=== PATIENT | female | born 1970 | race Caucasian/White ===

== ENCOUNTER 2017-01-05 11:28 | Emergency (ER) | payer MEDICAID ==
[2017-01-05 11:41] VITALS: TEMP 97.9; O2SAT 96
--- NOTE | 2017-01-05 11:49 | EDPHY ---
H & P Stated Complaint: L Knee Injury HPI/ROS: CHIEF COMPLAINT: Left knee pain, fall HISTORY OF PRESENT ILLNESS: Patient was running last night when she tripped and fell. She landed on her left knee in a bent position. She said severe pain in the left knee since then. Radiates down the leg. No numbness or tingling. No position of comfort. Severe, 10/10 pain. Unable to move due to the pain. No laceration. No injury to the ipsilateral hip. No back, head or neck injury. PRIOR ORTHO INJURIES: Multiple ortho injuries in the past ESTABLISHED ORTHOPEDIST: None REVIEW OF SYSTEMS: Ten systems reviewed and are negative unless otherwise noted in the HPI EXAMINATION General Appearance: Alert, no distress. Wearing sunglasses in the room. Crying but consolable Cardiovascular: Pulses normal throughout. Symmetric DP and PT pulses at 2+ Brisk cap refill Neurological: A&O, sensory symmetric, strength symmetric Skin: Warm and dry, no rash. Superficial abrasion over the anterior tibial spine on the left leg. No laceration. No ecchymosis. Extremities: Tenderness out of proportion to examination of the left knee. There is mild edema about the knee. Range of motion not tested due to pain. Neurovascular intact distal to the knee injury. Range of motion of the left ankle is intact. Psychiatric: Mood and affect normal DIFFERENTIAL DIAGNOSES: Including but not limited to hematoma, sprain, strain, fracture, fracture dislocation MDM: 11:45 a.m. Acute left knee pain after fall injury last night. She is neurovascular intact distal to the knee. There is pain out of proportion to examination. 12:15 p.m. Acute left knee sprain. No evidence of fracture by my interpretation. She will be placed in an Darrell wrap. She brought her are crutches. She is neurovascularly intact. Discharged home in stable condition with routine instructions for sprain. Follow up with Orthopedics for definitive care. Return to ER for motor or sensory changes as discussed. 1:05 p.m. Notified by resource nurse that the patient is asking for prescription for Zofran. She says the pain is nauseated her. I provided a prescription for her to fill. ED Precautions: Worsening pain. Erythema, edema, cyanosis, pallor, paresthesia or anesthesia. SUPERVISION: This patient was independently evaluated without direct examination by the attending physician. Case was discussed with attending physician. Source: Patient, Family Exam Limitations: No limitations - Personal History LMP (Females 10-55): Over 28 Days Ago Current Tetanus Diphtheria and Acellular Pertussis (TDAP): Yes - Medical/Surgical History Hx Asthma: No Hx Chronic Respiratory Disease: No Hx Diabetes: No Hx Cardiac Disease: No Hx Renal Disease: No Hx Cirrhosis: No Hx Alcoholism: No Hx HIV/AIDS: No Hx Splenectomy or Spleen Trauma: No Other PMH: Anxiety, L Leg fracture - Social History Smoking Status: Current some day smoker Constitutional: Initial Vital Signs Temperature (C) 97.9 F 01/05/17 11:30 Heart Rate 105 H 01/05/17 11:30 Respiratory Rate 20 01/05/17 11:30 Blood Pressure 150/112 H 01/05/17 11:30 O2 Sat (%) 96 01/05/17 11:30 O2 Delivery Mode Room Air Allergies/Adverse Reactions: diphenhydramine [From Benadryl] Allergy (Verified 01/05/17 11:29) ibuprofen Allergy (Verified 01/05/17 11:29) Home Medications: Medication Instructions Recorded Acetaminophen/Codeine 300/30Mg 1 each PO Q6 PRN #10 tab 01/05/17 [Tylenol #3 (*)] Ondansetron Odt [Zofran Odt 4 mg 4 mg PO Q6 PRN #12 tab 01/05/17 (*)] Medical Decision Making - Diagnostics Imaging Results: Imaging Impressions Knee X-Ray 01/05/17 11:40 Impression: Negative for fracture. Departure - Departure Disposition: Home, Routine, Self-Care Clinical Impression: Left knee sprain Qualifiers: Encounter type: initial encounter Involved ligament of knee: unspecified ligament Qualified Code(s): S83.92XA - Sprain of unspecified site of left knee, initial encounter Contusion of knee and lower leg Qualifiers: Encounter type: initial encounter Laterality: left Qualified Code(s): S80.02XA - Contusion of left knee, initial encounter Condition: Good Instructions: Knee Sprain (ED), Leg Sprain (ED) Additional Instructions: Follow-up with Orthopedics for definitive care. Return to the ER for motor sensory changes as discussed Referrals: NONE *PRIMARY CARE P,. [Primary Care Provider] - As per Instructions Demian Burgos MD [Medical Doctor] - As per Instructions Prescriptions: Acetaminophen/Codeine 300/30Mg [Tylenol #3 (*)] 1 each PO Q6 PRN #10 tab PRN Reason: Pain, Mild Ondansetron Odt [Zofran Odt 4 mg (*)] 4 mg PO Q6 PRN #12 tab PRN Reason: Nausea/Vomiting, Use 1st
[2017-01-05 12:27] VITALS: BP 120/79; PULSE 80; RESP 16
== END 2017-01-05 12:25 | disposition home or self-care (01) ==
DX: S83.92XA Sprain of unspecified site of left knee, initial encounter (principal); S80.02XA Contusion of left knee, initial encounter; F17.200 Nicotine dependence, unspecified, uncomplicated; W01.0XXA Fall on same level from slipping, tripping and stumbling without subsequent striking against object, initial encounter; Y99.8 Other external cause status; Y93.02 Activity, running

== ENCOUNTER 2017-02-09 12:42 | Emergency (ER) | payer MEDICAID ==
[2017-02-09 12:47] VITALS: BP 171/99; PULSE 98; RESP 14; TEMP 97.9; O2SAT 98
--- NOTE | 2017-02-09 12:51 | EDPHY ---
H & P Time Seen by Provider: 02/09/17 12:49 HPI/ROS: CHIEF COMPLAINT: Left ankle injury HISTORY OF PRESENT ILLNESS: 47-year-old female arrives via private vehicle complaining of left lateral ankle pain which occurred 2 days ago when she was going to the bathroom and rolled her foot. She has been able to bear weight and went for a bike guard yesterday but notes continued pain. No paresthesia. No proximal pain or injury. She arrives with her own pre-hospital crutches PRIMARY CARE PROVIDER:[facility] PHYSICAL EXAM (Prior to examination, patient consented to physical exam, hands were washed and my usual and customary physical exam procedures followed) 1) GENERAL: Well-developed, well-nourished, alert and oriented. Appears to be in no acute distress. 2) HEAD: Normocephalic 3) HEENT: Pupils equal, round, reactive to light bilaterally. 4) LUNGS: Breathing comfortably. 5) MUSCULOSKELETAL: proximal tibia and fibula nontender . Tender to palpation lateral malleolus. Calcaneus nontender. 5th MT nontender negative Nick test, compartments soft 6) SKIN: ecchymotic discoloration no tenting 7) VASCULAR: DP,PT pulses and cap refill present and brisk DIFFERENTIAL DIAGNOSIS: in no particular order including but not limited to fracture, sprain, compartment syndrome Procedure: Splint A arnaud boot splint was applied by ER sand technician. After application of the splint I returned and re-examined the patient. The splint was adequately immobilizing the joint and distal to the splint the patient's circulation and sensation were intact. Patient shows no signs of compartment syndrome. Was given orthopedic precautions. Smoking Status: Current some day smoker Constitutional: Initial Vital Signs Temperature (C) 36.6 C 02/09/17 12:44 Heart Rate 98 02/09/17 12:44 Respiratory Rate 14 02/09/17 12:44 Blood Pressure 171/99 H 02/09/17 12:44 O2 Sat (%) 98 02/09/17 12:44 Allergies/Adverse Reactions: diphenhydramine [From Benadryl] Allergy (Verified 01/05/17 11:29) ibuprofen Allergy (Verified 01/05/17 11:29) Home Medications: Medication Instructions Recorded Acetaminophen/Codeine 300/30Mg 1 each PO Q6 PRN #10 tab 01/05/17 [Tylenol #3 (*)] Ondansetron Odt [Zofran Odt 4 mg 4 mg PO Q6 PRN #12 tab 01/05/17 (*)] MDM/Departure - MDM Imaging Results: Imaging Impressions Ankle X-Ray 02/09/17 12:55 Impression: Negative for fracture. Images reviewed by myself - Depart Disposition: Home, Routine, Self-Care Clinical Impression: Left ankle sprain Qualifiers: Encounter type: initial encounter Involved ligament of ankle: unspecified ligament Qualified Code(s): S93.402A - Sprain of unspecified ligament of left ankle, initial encounter Condition: Good Instructions: Ankle Sprain (ED) Additional Instructions: Return to the ER immediately if you experience discoloration, have worsening pain, numbness, tingling, or any other symptoms that concern you. If you received x-rays in the emergency department today, be advised, that ligamentous , tendon, muscular, and other non-bony injury cannot be fully ruled out. Try to keep your affected extremity elevated above the level of your chest, and keep cold packs on the affected area, for the next 48 hours. Referrals: Yuan Montalvo MD [Medical Doctor] - 2-3 days, call for appt.
== END 2017-02-09 13:31 | disposition home or self-care (01) ==
DX: S93.402A Sprain of unspecified ligament of left ankle, initial encounter (principal); F17.200 Nicotine dependence, unspecified, uncomplicated; X58.XXXA Exposure to other specified factors, initial encounter
CPT/HCPCS: L4386

== ENCOUNTER 2017-06-19 18:41 | Emergency (ER) | payer MEDICAID ==
--- NOTE | 2017-06-19 19:07 | EDPHY ---
H & P Stated Complaint: DOG BITE R LEG LAST NIGHT/ANIMAL CONTROL INVOLVED Time Seen by Provider: 06/19/17 19:06 HPI/ROS: HPI: This is a 47-year-old female who presents with Chief Complaint:DOG BITE R LEG LAST NIGHT/ANIMAL CONTROL INVOLVED Location: Right leg Quality: Dog bite Duration: Last night Signs and Symptoms: No bleeding, no radiation, no numbness, no weakness, no tingling, no incontinence, no decreased range of motion, + pain, + redness, + warmth Timing: Acute Severity: Mild Context: Patient reports that she was walking home from the store yesterday evening around 7:00 p.m, when her neighbor's dog was approaching her. She noticed that he had a wound on his hip and tried to take a closer look. The dog did not want to be touched and bit her in the back of her right knee. The police and animal control were notified. She has called her neighbor who has yet to return her phone calls. Animal control is in the process of picking up the dog for quarantine. Patient immediately went home and washed with soap and water and has applied alcohol to the area today. She complains of moderate pain on the right side of her mouth for dental caries for which she is taking penicillin for as well as [id number] pain behind her right knee. Patient reports that her tetanus is up-to-date. She is having no difficulty ambulating. Modifying Factors: See above Comment: ROS: see HPI Constitutional: No fever, no chills, no weight loss Eyes: No blurred vision Respiratory: No shortness of breath, no cough Cardiovascular: No chest pain Gastrointestinal: No nausea, no vomiting no diarrhea Genitourinary: No dysuria Extremities: No myalgias Neurologic: No weakness, no numbness Skin: No rashes Hematologic: No bruising, no bleeding MEDICAL/SURGICAL/SOCIAL HISTORY: Medical history: Does not take any regular medications. Surgical history: Ovarian mass removal Social history: . Recently moved to the area. CONSTITUTIONAL: Pleasant adult white female, nontoxic in appearance awake and alert, no obvious distress HEENT: Atraumatic and normocephalic, PERRL, EOMI. Tympanic membranes clear. Oropharynx clear, no exudate and moist pink mucosa. Airway patent. No lymphadenopathy. No meningismus. Cardiovascular: Normal S1/S2, regular rate, regular rhythm, without murmur rub or gallop. PULMONARY/CHEST: Symmetrical and nontender. Clear to auscultation bilaterally. Good air movement. No accessory muscle usage. ABDOMEN: Soft, nondistended, nontender, no rebound, no guarding, no peritoneal signs, no masses or organomegaly. No CVAT. EXTREMITIES: 2/2 pulses, right posterior knee in crease shows 3 cm mild erythematous area accompanied by a mild ecchymosis/ no warmth. Right Knee has full extension, flexion to 120, no effusion, stable to varus and valgus exam. no deformities, no clubbing, no cyanosis or edema. No calf tenderness. No palpable cords. Negative Homans sign. NEUROLOGICAL: no focal neuro deficits. GCS 15. Ambulatory without deficits. SKIN: Warm and dry, no erythema. no rash. Good capillary refill. Source: Patient Exam Limitations: No limitations - Personal History LMP (Females 10-55): Extended Cycle BCP/Inj Current Tetanus/Diphtheria Vaccine: Yes - Medical/Surgical History Hx Asthma: No Hx Chronic Respiratory Disease: No Hx Diabetes: No Hx Cardiac Disease: No Hx Renal Disease: No Hx Cirrhosis: No Hx Alcoholism: No Hx HIV/AIDS: No Hx Splenectomy or Spleen Trauma: No Other PMH: Anxiety, L Leg fracture, ANDRÉS - Social History Smoking Status: Current every day smoker Constitutional: Initial Vital Signs Temperature (C) 37 C 06/19/17 18:50 Heart Rate 120 H 06/19/17 18:50 Respiratory Rate 20 06/19/17 18:50 Blood Pressure 107/75 06/19/17 18:50 O2 Sat (%) 94 06/19/17 18:50 O2 Delivery Mode Room Air Allergies/Adverse Reactions: diphenhydramine [From Benadryl] Allergy (Verified 06/19/17 18:48) ibuprofen Allergy (Verified 06/19/17 18:48) Home Medications: Medication Instructions Recorded Amoxicillin/Clavulanate Pot 875 mg PO BID #14 tab 06/19/17 [Augmentin 875 MG TAB (*)] PENICILLIN V POTASSIUM 06/19/17 Prozac 10 MG (*) 06/19/17 Tramadol HCl 50 mg PO Q6 PRN #10 tablet 06/19/17 Medical Decision Making ED Course/Re-evaluation: Oral medications given. Tetanus up-to-date. Given Augmentin and Ultram. Advised patient to top taking penicillin as it is replaced with Augmentin. Discussed receiving rabies prophylaxis. Patient has politely declined at this time as animal control is picking up the dog to be quarantined. No signs of neurovascular compromise/tenting of skin/compartment syndrome/ extremities and joints examined above and below area of concern and are neurovascularly intact. Differential Diagnosis: Differential diagnosis includes but is not limited to dog bite contusion, cellulitis, muscle injury, nerve injury. Departure - Departure Disposition: Home, Routine, Self-Care Clinical Impression: Dog bite of extremity Condition: Good Instructions: Animal Bite (ED), Rabies (ED), Rabies Vaccine (By injection), Rabies Immune Globulin (By injection) Additional Instructions: Please discontinue taking penicillin and take Augmentin as directed until complete. Please follow up with animal control to verify quarantined of neighbor's dog. Please provide daily wound care to the dog bite site of washing with mild soap and water, pat dry, apply topical antibiotic ointment, and cover with clean sterile dressing until fully healed. Please monitor for signs and symptoms of infection including but not limited to , increasing warmth, pain, purulent drainage. Prescriptions: Amoxicillin/Clavulanate Pot [Augmentin 875 MG TAB (*)] 875 mg PO BID #14 tab Tramadol HCl 50 mg PO Q6 PRN #10 tablet PRN Reason: Pain, Moderate
[2017-06-19] MEDS ORDERED: traMADol 50 MG TAB PO ONE (19:16)
[2017-06-19] MEDS ORDERED: AMOXICILLIN/CLAVULANATE POT 875/125 MG TAB PO ONE (19:16)
[2017-06-19 19:48] VITALS: BP 138/100; PULSE 87; RESP 16; TEMP 97.9; O2SAT 93
== END 2017-06-19 19:48 | disposition home or self-care (01) ==
DX: S81.851A Open bite, right lower leg, initial encounter (principal); F17.200 Nicotine dependence, unspecified, uncomplicated; W54.0XXA Bitten by dog, initial encounter; Y99.8 Other external cause status; Y93.89 Activity, other specified

== ENCOUNTER 2017-06-21 13:35 | Emergency (ER) | payer MEDICAID ==
[2017-06-21 13:44] VITALS: BP 155/113; PULSE 107; RESP 18; TEMP 97.5; O2SAT 97
--- NOTE | 2017-06-21 14:10 | EDPHY ---
H & P Stated Complaint: R Leg Dog bite 2 days ago, possible infection Time Seen by Provider: 06/21/17 13:59 HPI/ROS: CHIEF COMPLAINT: Right leg pain HISTORY OF PRESENT ILLNESS: The patient is a 47-year-old female who comes to the emergency department complaining of pain behind her right knee after being bitten by a dog 3 days ago. She was seen here on the 12th for then had her wound cleaned. She declined tetanus vaccination. She was started on Augmentin. The dog that bit her is in quarantine. She was concerned today because she still having pain and saw and discoloration. She is worried that maybe it is getting infected. She is able to ambulate. No drainage. REVIEW OF SYSTEMS: Constitutional: denies: chills, fever, recent illness, recent injury EENTM: denies: blurred vision, double vision, nose congestion Respiratory: denies: cough, shortness of breath Cardiac: denies: chest pain, irregular heart rate, lightheadedness, palpitations Gastrointestinal/Abdominal: denies: abdominal pain, diarrhea, nausea, vomiting, blood streaked stools Genitourinary: denies: dysuria, frequency, hematuria, pain Musculoskeletal: denies: joint pain, muscle pain Skin: See HPI Neurological: denies: headache, numbness, paresthesia, tingling, dizziness, weakness Hematologic/Lymphatic: denies: blood clots, easy bleeding, easy bruising Immunologic/allergic: denies: HIV/AIDS, transplant EXAM: GENERAL: Well-appearing, well-nourished and in no acute distress. HEAD: Atraumatic, normocephalic. EYES: Pupils equal round and reactive to light, extraocular movements intact, sclera anicteric, conjunctiva are normal. ENT: TMs normal, nares patent, oropharynx clear without exudates. Moist mucous membranes. NECK: Normal range of motion, supple without lymphadenopathy or JVD. LUNGS: Breath sounds clear to auscultation bilaterally and equal. No wheezes rales or rhonchi. HEART: Regular rate and rhythm without murmurs, rubs or gallops. ABDOMEN: Soft, nontender, normoactive bowel sounds. No guarding, no rebound. No masses appreciated. BACK: No CVA tenderness, no spinal tenderness, step-offs or deformities EXTREMITIES: Normal range of motion, no pitting or edema. No clubbing or cyanosis. NEUROLOGICAL: Cranial nerves II through XII grossly intact. Normal speech, normal gait. 5/5 strength, normal movement in all extremities, normal sensation PSYCH: Normal mood, normal affect. SKIN: Minimal bruising to posterior right knee. Well-healing wound. No sign of erythema or drainage or infection. Source: Patient Exam Limitations: No limitations - Personal History LMP (Females 10-55): Hysterectomy Current Tetanus Diphtheria and Acellular Pertussis (TDAP): Yes - Medical/Surgical History Hx Asthma: No Hx Chronic Respiratory Disease: No Hx Diabetes: No Hx Cardiac Disease: No Hx Renal Disease: No Hx Cirrhosis: No Hx Alcoholism: No Hx HIV/AIDS: No Hx Splenectomy or Spleen Trauma: No Other PMH: Anxiety, L Leg fracture, ANDRÉS - Family History Significant Family History: No pertinent family hx - Social History Smoking Status: Current every day smoker Alcohol Use: Sober Drug Use: None Constitutional: Initial Vital Signs Temperature (C) 36.4 C 06/21/17 13:42 Heart Rate 107 H 06/21/17 13:42 Respiratory Rate 18 06/21/17 13:42 Blood Pressure 155/113 H 06/21/17 13:42 O2 Sat (%) 97 06/21/17 13:42 O2 Delivery Mode Room Air Allergies/Adverse Reactions: diphenhydramine [From Benadryl] Allergy (Verified 06/21/17 13:44) ibuprofen Allergy (Verified 06/21/17 13:44) Home Medications: Medication Instructions Recorded Amoxicillin/Clavulanate Pot 875 mg PO BID #14 tab 06/19/17 [Augmentin 875 MG TAB (*)] PENICILLIN V POTASSIUM 06/19/17 Prozac 10 MG (*) 06/19/17 Tramadol HCl 50 mg PO Q6 PRN #10 tablet 06/19/17 Medical Decision Making ED Course/Re-evaluation: The patient was concerned for infection however clinically there is no sign of infection. I recommended compression and will place her in an Darrell wrap. She will continue taking the pain medication and antibiotics. The dogs in quarantine. I reassured her by discussing the fact that no dog in the [place] has been diagnosed with rabies in over 50 years. Differential Diagnosis: Partial list of the Differential diagnosis considered include but were not limited to; wound infection, foreign body, contusion and although unlikely based on the history and physical exam, I also considered tendon injury, rabies. I discussed these differential diagnoses and the plan with the patient as well as the usual and expected course. The patient understands that the diagnosis is provisional and that in medicine we are not always correct and that further workup is often warranted. Usual and customary warnings were given. All of the patient's questions were answered. The patient was instructed to return to the emergency department should the symptoms at all worsen or return, otherwise to followup with the physician as we discussed. Departure - Departure Disposition: Home, Routine, Self-Care Clinical Impression: Contusion Qualifiers: Encounter type: subsequent encounter Contusion area: knee Laterality: right Qualified Code(s): S80.01XD - Contusion of right knee, subsequent encounter Dog bite of right knee Qualifiers: Encounter type: initial encounter Qualified Code(s): S81.051A - Open bite, right knee, initial encounter Condition: Fair Instructions: Contusion in Adults (ED) Referrals: BOBBY BRAGG [Other] - As per Instructions
== END 2017-06-21 14:30 | disposition home or self-care (01) ==
DX: S81.051D Open bite, right knee, subsequent encounter (principal); S80.01XD Contusion of right knee, subsequent encounter; F17.200 Nicotine dependence, unspecified, uncomplicated; W54.0XXD Bitten by dog, subsequent encounter

== ENCOUNTER 2017-07-02 03:22 | Emergency (ER) | payer MEDICAID ==
[2017-07-02 03:27] VITALS: TEMP 99.7; O2SAT 94
[2017-07-02] MEDS ORDERED: ONDANSETRON DISINTEGRATING 4 MG TAB ONE (03:56)
[2017-07-02] MEDS ORDERED: ONDANSETRON DISINTEGRATING 4 MG TAB PO ONE (03:58)
--- NOTE | 2017-07-02 04:15 | EDPHY ---
H & P Stated Complaint: dx with flu on 06/23 and now having emesis and shaking Time Seen by Provider: 07/02/17 03:44 HPI/ROS: Chief Complaint: Difficulty breathing, cough, vomiting HPI: 39-year-old woman diagnosed with of viral upper respiratory type infection about a week ago has been having persistent dry, nonproductive cough. Had some nausea and vomiting this morning. Patient states she has had increasing anxiety and stress. Is prone to panic attacks and has had increasing stressors in her life. Is this morning she felt short of breath like a panic attack and felt like she was gasping. She felt lightheaded but did not pass out. Had some tingling in her extremities. She has had some nausea and vomiting. No chest pain or shortness of breath. No abdominal pain. No fainting. ROS: 10 point Review of Systems is negative except as noted in the HPI. Social History: Positive smoking, no alcohol, occasional marijuana Family History: non-contributory Physical Exam: Gen: Awake, Alert, No Distress, very anxious HEENT: Nose: no rhinorrhea Eyes: PERRLA, EOMI Mouth: Moist mucosa Neck: Supple, no JVD Chest: nontender, lungs clear to auscultation Heart: S1, S2 normal, no murmur Abd: Soft, non-tender, no guarding Back: no CVA tenderness, no midline tenderness Ext: no edema, non-tender Skin: no rash Neuro: CN II-XII intact, Sensation grossly intact, Strength 5/5 in bilateral upper and lower extremities - Personal History LMP (Females 10-55): Hysterectomy Current Tetanus/Diphtheria Vaccine: No Current Tetanus Diphtheria and Acellular Pertussis (TDAP): No - Medical/Surgical History Hx Asthma: No Hx Chronic Respiratory Disease: No Hx Diabetes: No Hx Cardiac Disease: No Hx Renal Disease: No Hx Cirrhosis: No Hx Alcoholism: No Hx HIV/AIDS: No Hx Splenectomy or Spleen Trauma: No Other PMH: Anxiety, L Leg fracture, ANDRÉS, hysterectomy, depression - Social History Smoking Status: Current every day smoker Constitutional: Initial Vital Signs Temperature (C) 37.6 C 07/02/17 03:24 Heart Rate 135 H 07/02/17 03:24 Respiratory Rate 20 07/02/17 03:24 Blood Pressure 166/131 H 07/02/17 03:24 O2 Sat (%) 94 07/02/17 03:24 O2 Delivery Mode Room Air Allergies/Adverse Reactions: diphenhydramine [From Benadryl] Allergy (Verified 07/02/17 03:29) ibuprofen Allergy (Verified 07/02/17 03:29) Home Medications: Medication Instructions Recorded Amoxicillin/Clavulanate Pot 875 mg PO BID #14 tab 06/19/17 [Augmentin 875 MG TAB (*)] Prozac 10 MG (*) 06/19/17 Tramadol HCl 50 mg PO Q6 PRN #10 tablet 06/19/17 Medical Decision Making ED Course/Re-evaluation: 47-year-old with viral upper respiratory type symptoms with some vomiting here. Patient is appears extremely anxious. I have reassured her. Her lungs are clear. Her oxygen saturations are not vital signs is appropriate. She is quite tremulous. I have given her some ondansetron. She is feeling improved and tolerating p. o.. Will discharge her with follow up with primary care physician, return for worsening. No evidence of acute cardiac or pulmonary process at this time. She is initially very tachycardic was quite anxious. She has calmed down now on her heart rate has normalized. - Data Points Medications Given: Discontinued Medications Ondansetron HCl (Zofran Odt) 4 mg PO EDNOW ONE Stop: 07/02/17 03:59 Last Admin: 07/02/17 03:59 Dose: 4 mg Departure - Departure Disposition: Home, Routine, Self-Care Clinical Impression: Viral illness, Vomiting Condition: Good Instructions: Viral Syndrome (ED), Acute Nausea and Vomiting (ED) Additional Instructions: Follow up with primary care physician in 2-3 days for further evaluation. Return to the emergency depart for increasing pain, nausea, vomiting, fevers, chills, fainting, or any other concerns. Referrals: BOBBY CRISTINA [Other] - As per Instructions
[2017-07-02] MEDS ORDERED: LORazepam 1 MG TAB PO ONE (04:32)
[2017-07-02 05:11] VITALS: BP 164/118; PULSE 104; RESP 16
== END 2017-07-02 05:13 | disposition home or self-care (01) ==
DX: R11.10 Vomiting, unspecified (principal); B34.9 Viral infection, unspecified; F17.200 Nicotine dependence, unspecified, uncomplicated

== ENCOUNTER 2017-07-17 09:20 | Emergency (ER) | payer MEDICAID ==
[2017-07-17 09:26] VITALS: O2SAT 97
[2017-07-17] MEDS ORDERED: NS 2,000 ML IV ONE (09:36)
--- NOTE | 2017-07-17 09:40 | EDPHY ---
H & P Stated Complaint: Diagnosed with FLU last week, continued symptoms. Time Seen by Provider: 07/17/17 09:28 HPI/ROS: CHIEF COMPLAINT: "I have got diarrhea and the flu " HISTORY OF PRESENT ILLNESS: 47-year-old female arrives via private vehicle stating that she was diagnosed with influenza 1 week ago at her primary care provider, no antiviral therapy initiated that time. She is complaining of continued nonproductive cough as well as development of 10-12 episodes of diarrhea in the past 5-6 days. She has been able tolerate oral intake but notes decreased urine output. No melena or hematochezia. No abdominal pain. No chest pain. No dyspnea. The patient completed a course of Augmentin a few weeks ago secondary to dog bite. PRIMARY CARE PROVIDER: the [facility] REVIEW OF SYSTEMS: A ten point review of systems was performed and is negative with the exception of the items mentioned in the HPI PAST MEDICAL & SURGICAL HISTORY: Total hysterectomy. SOCIAL HISTORY:1/2 pack per day tobacco. FAMILY HISTORY: Daughter sick recently with influenza like illness PHYSICAL EXAM (Prior to examination, patient consented to physical exam, hands were washed and my usual and customary physical exam procedures followed) 1) GENERAL: Well-developed, well-nourished, alert and oriented. Appears anxious . 2) HEAD: Normocephalic, atraumatic 3) HEENT: Pupils equal, round, reactive to light bilaterally. Sclera anicteric. Nasopharynx, oropharynx, clear, no lesions. Dry mucous membranes Ears bilaterally with normal tympanic membranes. 4) NECK: Full range of motion, no meningeal signs. 5) LUNGS: Clear auscultation bilaterally, no wheezes, no rhonchi, no retractions. 6) HEART: Regular rate and rhythm, no murmur, no heave, no gallop. 7) ABDOMEN: No guarding, no rebound, no focal tenderness, negative McBurney's, negative Allison's, negative Rovsing's, negative peritoneal sign, unable to elicit any abdominal pain on exam 8) MUSCULOSKELETAL: Moving all extremities, no focal areas of tenderness, no obvious trauma. No peripheral edema or discoloration. 9) BACK: No CVA tenderness, no midline vertebral tenderness, no fluctuance, no step-off, no obvious trauma, no visual or palpable abnormality. 10) SKIN: No rash, no petechiae. 11) Psychiatric: Patient is oriented X 3, there is no agitation. DIFFERENTIAL DIAGNOSIS: in no particular include but limited to C diff colitis , viral syndrome, influenza, pneumonia - Personal History Current Tetanus Diphtheria and Acellular Pertussis (TDAP): Yes - Medical/Surgical History Hx Asthma: No Hx Chronic Respiratory Disease: No Hx Diabetes: No Hx Cardiac Disease: No Hx Renal Disease: No Hx Cirrhosis: No Hx Alcoholism: No Hx HIV/AIDS: No Hx Splenectomy or Spleen Trauma: No Other PMH: Anxiety, L Leg fracture, ANDRÉS, hysterectomy, depression - Social History Smoking Status: Current every day smoker Constitutional: Initial Vital Signs Temperature (C) 36.6 C 07/17/17 09:21 Heart Rate 131 H 07/17/17 09:21 Respiratory Rate 18 07/17/17 09:21 Blood Pressure 105/82 H 07/17/17 09:21 O2 Sat (%) 97 07/17/17 09:21 O2 Delivery Mode Room Air Allergies/Adverse Reactions: diphenhydramine [From Benadryl] Allergy (Verified 07/02/17 03:29) ibuprofen Allergy (Verified 07/02/17 03:29) Home Medications: Medication Instructions Recorded Amoxicillin/Clavulanate Pot 875 mg PO BID #14 tab 06/19/17 [Augmentin 875 MG TAB (*)] Prozac 10 MG (*) 06/19/17 Tramadol HCl 50 mg PO Q6 PRN #10 tablet 06/19/17 Medical Decision Making - Diagnostics Imaging Results: Imaging Impressions Chest X-Ray 07/17/17 09:36 Impression: Minimal airways disease. No pneumonia or effusion. Images reviewed myself ED Course/Re-evaluation: 9:36 a.m.: Diagnostic studies will be obtained on the patient, she will be given IV hydration for indication: Volume depletion. Care of patient under supervision of secondary supervising physician Dr Haney . 11:50 a.m.: Re-evaluation, sleeping, comfortable. No urine output yet. She is hemoconcentrated and volume depleted. She has been given IV hydration. 1:20 p.m.: Re-evaluation, IV fluid has been completed, she is sitting upright, smiling, states that she feels improvement, would like to be discharged home. We discussed the importance of hydration. Recommend 24 hour recheck with her primary care provider. Doubt acute surgical abdominal pathology and absence of abdominal pain either subjectively or objectively. She has been unable provide a stool sample while in the emergency department. Discussed possibility of C diff colitis the presence recent antibiotic use however as she has been unable to provide stool sample will hold on empiric treatment. Usual and customary discharge precautions and instructions provided. - Data Points Laboratory Results: Laboratory Results 07/17/17 09:50 07/17/17 09:50 07/17/17 07/17/17 07/17/17 09:50 09:50 09:30 WBC 4.15 10^3/uL 10^3/uL (3.80-9.50) RBC 5.22 10^6/uL 10^6/uL (4.18-5.33) Hgb 17.6 g/dL H g/dL (12.6-16.3) Hct 48.4 % H % (38.0-47.0) MCV 92.7 fL fL (81.5-99.8) MCH 33.7 pg pg (27.9-34.1) MCHC 36.4 g/dL g/dL (32.4-36.7) RDW 13.1 % % (11.5-15.2) Plt Count 203 10^3/uL 10^3/uL (150-400) MPV 11.0 fL fL (8.7-11.7) Neut % (Auto) 69.7 % % (39.3-74.2) Lymph % (Auto) 15.2 % % (15.0-45.0) Perkins % (Auto) 14.0 % H % (4.5-13.0) Eos % (Auto) 0.2 % L % (0.6-7.6) Baso % (Auto) 0.7 % % (0.3-1.7) Nucleat RBC Rel Count 0.0 % % (0.0-0.2) Absolute Neuts (auto) 2.89 10^3/uL 10^3/uL (1.70-6.50) Absolute Lymphs (auto) 0.63 10^3/uL L 10^3/uL (1.00-3.00) Absolute Monos (auto) 0.58 10^3/uL 10^3/uL (0.30-0.80) Absolute Eos (auto) 0.01 10^3/uL L 10^3/uL (0.03-0.40) Absolute Basos (auto) 0.03 10^3/uL 10^3/uL (0.02-0.10) Absolute Nucleated RBC 0.00 10^3/uL 10^3/uL (0-0.01) Immature Gran % 0.2 % % (0.0-1.1) Immature Gran # 0.01 10^3/uL 10^3/uL (0.00-0.10) Sodium 132 mEq/L L mEq/L (134-144) Potassium 3.1 mEq/L L mEq/L (3.5-5.2) Chloride 91 mEq/L L mEq/L (97-110) Carbon Dioxide 21 mEq/l L mEq/l (22-31) Anion Gap 20 mEq/L H mEq/L (8-16) BUN 21 mg/dL mg/dL (7-23) Creatinine 0.8 mg/dL mg/dL (0.6-1.0) Estimated GFR > 60 Glucose 96 mg/dL mg/dL (70-100) Calcium 8.9 mg/dL mg/dL (8.5-10.4) Total Bilirubin 0.7 mg/dL mg/dL (0.1-1.4) Conjugated Bilirubin 0.3 mg/dL mg/dL (0.0-0.5) Unconjugated Bilirubin 0.4 mg/dL mg/dL (0.0-1.1) AST 90 IU/L H IU/L (14-46) ALT 69 IU/L H IU/L (9-52) Alkaline Phosphatase 91 IU/L IU/L (38-126) Total Protein 6.9 g/dL g/dL (6.3-8.2) Albumin 4.4 g/dL g/dL (3.5-5.0) Lipase 186 IU/L IU/L (23-300) Nasal Influenza A PCR NEGATIVE FOR FLU A (NEGATIVE) Nasal Influenza B PCR NEGATIVE FOR FLU B (NEGATIVE) Medications Given: Discontinued Medications Sodium Chloride (Ns) 2,000 mls @ 0 mls/hr IV ONCE ONE PRN Reason: Wide Open Stop: 07/17/17 09:37 Last Admin: 07/17/17 10:16 Dose: 2,000 mls Potassium Chloride (Klor Packets) 20 meq PO EDNOW ONE Stop: 07/17/17 12:56 Last Admin: 07/17/17 13:06 Dose: 20 meq Departure - Departure Disposition: Home, Routine, Self-Care Clinical Impression: Volume depletion Diarrhea Qualifiers: Diarrhea type: unspecified type Qualified Code(s): R19.7 - Diarrhea, unspecified Condition: Good Instructions: Acute Diarrhea (ED) Additional Instructions: Return to the emergency department if you are unable to keep food or fluid down , if you develop new or worsening symptoms or any other symptoms that concern you. Referrals: [facility] [Other] - 1 day without fail
[2017-07-17 10:05] LABS: ADD DIFF? NO; ADD MORPH? NO; ADD SCAN? YES; FRAGMENT RBC FLAG 0 (0-99); LEFT SHIFT FLG 0 (0-99); LIPEMIA HEMOLYSIS FLAG 90 (0-99); MEAN CELL HEMOGLOBIN 33.7 pg (27.9-34.1); MEAN CELL HEMOGLOBIN CONCENTR. 36.4 g/dL (32.4-36.7); PLATELET CLUMPS FLAG 10 (0-99)
[2017-07-17 10:07] LABS: % IMMATURE GRANULYOCYTES 0.2 % (0.0-1.1); ABSOLUTE IMMATURE GRANULOCYTES 0.01 10^3/uL (0.00-0.10); HEMATOCRIT 48.4 % (38.0-47.0); HEMOGLOBIN 17.6 g/dL (12.6-16.3); MEAN CELL VOLUME 92.7 fL (81.5-99.8); PLATELET COUNT 203 10^3/uL (150-400); RED BLOOD CELL COUNT 5.22 10^6/uL (4.18-5.33); RED CELL DISTRIBUTION WIDTH 13.1 % (11.5-15.2)
[2017-07-17 10:09] LABS: ATYPICAL LYMPHOCYTE FLAG 120 (0-99)
[2017-07-17 10:33] LABS: ALANINE AMINOTRANSFERASE 69 IU/L (9-52); ALBUMIN 4.4 g/dL (3.5-5.0); ALKALINE PHOSPHATASE 91 IU/L (38-126); ANION GAP 20 mEq/L (8-16); ASPARTATE AMINOTRANSFERASE 90 IU/L (14-46); BILIRUBIN,TOTAL 0.7 mg/dL (0.1-1.4); BILIRUBIN-CONJUGATED 0.3 mg/dL (0.0-0.5); BILIRUBIN-UNCONJUGATED 0.4 mg/dL (0.0-1.1); CALCIUM 8.9 mg/dL (8.5-10.4); CARBON DIOXIDE 21 mEq/l (22-31); CHLORIDE 91 mEq/L (97-110); CREATININE 0.8 mg/dL (0.6-1.0); GLOMERULAR FILTRATION RATE > 60; GLUCOSE 96 mg/dL (70-100); POTASSIUM 3.1 mEq/L (3.5-5.2); SODIUM 132 mEq/L (134-144); TOTAL PROTEIN 6.9 g/dL (6.3-8.2)
[2017-07-17 10:57] LABS: SCAN NEGATIVE
[2017-07-17] MEDS ORDERED: POTASSIUM CL 20 MEQ PKT PO ONE (12:55)
[2017-07-17 13:00] VITALS: BP 126/90; PULSE 102; RESP 16; TEMP 98.1
== END 2017-07-17 13:20 | disposition home or self-care (01) ==
DX: R19.7 Diarrhea, unspecified (principal); E86.9 Volume depletion, unspecified; F17.200 Nicotine dependence, unspecified, uncomplicated

== ENCOUNTER 2017-08-06 16:39 | Emergency (ER) | payer MEDICAID ==
[2017-08-06 16:47] VITALS: BP 148/110; PULSE 94; RESP 18; TEMP 97.5; O2SAT 94
--- NOTE | 2017-08-06 17:07 | EDPHY ---
H & P Time Seen by Provider: 08/06/17 16:49 HPI/ROS: CHIEF COMPLAINT: Odontalgia HISTORY OF PRESENT ILLNESS: 47-year-old female arrives via private vehicle complaining of acute left maxillary molar pain after a "failed root canal" by her dentist at [facility] yesterday. States that she was not prescribed any analgesia was told to follow up with in director economic in 2 weeks. She is complaining of pain. No trismus no drooling. No fever no chills. PHYSICAL EXAM (Prior to examination, patient consented to physical exam, hands were washed and my usual and customary physical exam procedures followed) 1) GENERAL: Well-developed, well-nourished, alert and oriented. Appears uncomfortable, hyperventilating, crying 2) HEAD: Normocephalic 3) HEENT: sclera anicteric. No facial asymmetry or swelling. Nasolabial folds are symmetrical. Submandibular and submental spaces are nontender non indurated. Floor of mouth soft no evidence of Hoang's angina. She is tender to percussion the left maxillary molars with visible recent dental intervention. No signs of apical abscess. 4) LUNGS: Breathing comfortably. Smoking Status: Current every day smoker Constitutional: Initial Vital Signs Temperature (C) 36.4 C 08/06/17 16:44 Heart Rate 94 08/06/17 16:44 Respiratory Rate 18 08/06/17 16:44 Blood Pressure 148/110 H 08/06/17 16:44 O2 Sat (%) 94 08/06/17 16:44 O2 Delivery Mode Room Air Allergies/Adverse Reactions: diphenhydramine [From Benadryl] Allergy (Verified 08/06/17 16:43) ibuprofen Allergy (Verified 08/06/17 16:43) Home Medications: Medication Instructions Recorded Amoxicillin/Clavulanate Pot 875 mg PO BID #14 tab 06/19/17 [Augmentin 875 MG TAB (*)] Tramadol HCl 50 mg PO Q6 PRN #10 tablet 06/19/17 Amoxicillin Trihydrate 500 mg PO Q8 7 Days cap 08/06/17 [Amoxicillin 500mg cap] Hydrocodone/APAP 5/325 [Camilla 1 tab PO Q6 PRN #10 tab 08/06/17 5/325 (RX)] MDM/Departure - MDM Procedures: Procedure: Dental nerve block Indication: Odontalgia Indications risks benefits discussed with patient, 0.5% plain bupivacaine administered in usual and customary dental nerve block manner. Patient tolerated procedure well. ED Course/Re-evaluation: Doubt deep space infection, doubt Hoang's angina. human resources training manager has consulted see about obtaining more urgent dental follow-up.Care of patient under supervision of secondary supervising physician Dr Morfin . - Depart Disposition: Home, Routine, Self-Care Clinical Impression: Odontalgia Condition: Good Instructions: Toothache (ED) Prescriptions: Amoxicillin Trihydrate [Amoxicillin 500mg cap] 500 mg PO Q8 7 Days cap Hydrocodone/APAP 5/325 [Camilla 5/325 (RX)] 1 tab PO Q6 PRN #10 tab PRN Reason: Pain, Severe Referrals: Dental Aid [Outside] - As per Instructions
--- NOTE | 2017-08-06 18:12 | ASMTCMCOM ---
CM Note CM Note Notes: Per chart review, patient has presented to this ER for various complaints 7 times in the past 8 months. Case Management asked to see patient and provide dental resources. Patient presents to the ER s/p "failed root canal" at [facility]. Patient tells CM that she was told by dentist at [facility] that she needed to see a "specialist or go to the ER". Information for Dental Aid, as well as other dental resources provided. Patient is current with [place] [employer] and I have encouraged her to follow up and/or establish a PCP Date Signed: 08/06/2017 06:11 PM Electronically Signed By:Maxine Cassidy RN
== END 2017-08-06 18:04 | disposition home or self-care (01) ==
PROC: 3E0X3BZ Introduction of Anesthetic Agent into Cranial Nerves, Percutaneous Approach (ICD-10-PCS; principal; 2017-08-06)
DX: G89.18 Other acute postprocedural pain (principal); K08.89 Other specified disorders of teeth and supporting structures; F17.200 Nicotine dependence, unspecified, uncomplicated

== ENCOUNTER → 2017-08-26 | Outpatient (CLI) | payer MEDICAID | LOC: BRMIMAGING 09:24 | DX: N63.21 Unspecified lump in the left breast, upper outer quadrant (principal); N63.11 Unspecified lump in the right breast, upper outer quadrant | CPT/HCPCS: 76641-PO; G0204 ==